=== PATIENT | female | born 1995 | race Caucasian/White ===

== ENCOUNTER 2017-01-30 21:58 | Emergency (ER) | payer MEDICAID ==
--- NOTE | ~2017-01-30 | ER ---
PATIENT'S NAME: ALLYSON [facility]ER[facility] AGE: 21 Y [address] ROOM: [place], [place] [address] LOCATION: [facility] ADMIT DATE: 01/30/2017 ER/Outpatient Report DISCHARGE DATE: 01/30/2017 FAMILY PHYSICIAN: Rupesh Tovar PA-C ATTENDING PHYSICIAN: Louis Rene HISTORY OF PRESENT ILLNESS: A 21-year-old female who presents today with chest pain. Her chest wall pain is in the middle of her chest. It does not radiate. She does not have arm pain. She does have any nausea or vomiting. She is not coughing. She is not short of breath. She says that she has pain with palpation and also with deep breathing. She does not feel short of breath otherwise. She has no calf pain. She is status 3 months ago, she is on control pills right now, but otherwise has no PE risk factors. Denies any leg swelling. Denies any smoking history. No other complaints. She reports her pain is 8/10. She has not taken anything for it because she says ibuprofen and Tylenol do not help her. She does have Percocet at home after her 3 months ago, but says she does not want to take them because she has to watch kids at home and she does want to be tired. This pain started about 11 hour ago and she rates it an 8/10. No fever. PAST MEDICAL HISTORY: None. PAST SURGICAL HISTORY: and appendectomy. SOCIAL HISTORY: She does not smoke or use any drugs. Occasional alcohol. MEDICATIONS: 1. Ibuprofen p.r.n. 2. Percocet p.r.n. ALLERGIES: NONE. REVIEW OF SYSTEMS: Reviewed by me and negative with the exception of those discussed in the HPI. PHYSICAL EXAMINATION: VITAL SIGNS: She is 5 feet, 2 inches, she weighs 101.3 kilos, blood pressure is 168/79, heart rate is 89, respiratory rate is 16, temp is 99.1, and sats are 98% on room air. GCS is 15. GENERAL: The patient looks very comfortable, resting in stretcher, she was PATIENT'S NAME: ALLYSON STER[facility]ING [facility] AGE: 21 Y [address] ROOM: [place], [place] [address] LOCATION: ED ADMIT DATE: 01/30/2017 ER/Outpatient Report DISCHARGE DATE: 01/30/2017 FAMILY PHYSICIAN: Rupesh Tovar PA-C ATTENDING PHYSICIAN: Louis Rene texting and playing on [employer] before I came in, and she was like carrying her baby on her chest as well without any difficulty. She is not pale or diaphoretic. She is not actively vomiting or retching. She is not writhing in pain at all. NEURO: She is alert and oriented x4. GCS is 15. She answers questions appropriately. CHEST: She has chest wall tenderness across the sternum, but there is no crepitus. She does not have any decreased breath sounds. She has no wheezing, rales, or rhonchi. Normal breath sounds and satting 100% on room air. No accessory muscle use. No rib tenderness either. Heart rate is regular rate and rhythm. Currently, she is about 85 beats per minute. She has strong pulses and good cap refill. ABDOMEN: She has a so she has some mild tenderness, but no epigastric tenderness, no right upper quadrant tenderness, no left upper quadrant tenderness, and no CVA tenderness bilaterally. EXTREMITIES: She has no leg edema, no swelling, and no calf tenderness. EMERGENCY ROOM COURSE: We did an EKG here which on my read appears normal. She has sinus rhythm. There is no ectopy. There is no ST elevations or ST depressions. There are no inverted T-waves. I discussed with the patient that she is 21 years old she does not have what looks like to be an OH in her. Her history and physical exam that I have is pretty reassuring and there are no red flags. She says that she has something like this about a year ago and she was admitted to the hospital where she had this huge workup done, including a CTA chest, which was negative for blood clots, and then was discharged home because they did not find anything. Her sats are 100% on room air, she does not appear tachypneic at all, she has no other PE risk factors, I doubt that at this time. She is not coughing. She has no rales or rhonchi. She does not have any signs of pneumonia either. It is mostly chest wall tenderness; so, we treated the pain conservatively with some [place] first as she said that Tylenol and ibuprofen does not help and she said that it did not help her at all. So, we gave her some Toradol as well. She also said that did not really help her. I asked that she follow up with her primary care doctor. There is no red flags in her history or physical exam. She can take her Percocet at home as I think this is just chest wall tenderness and costochondritis. She understands this and will follow up appropriately. IMPRESSION: Chest wall pain. LOUIS RENE MD PATIENT'S NAME: ALLYSON STER[facility] AGE: 21 Y [address] ROOM: [place] [id number] LOCATION: [facility] ADMIT DATE: 01/30/2017 ER/Outpatient Report DISCHARGE DATE: 01/30/2017 FAMILY PHYSICIAN: Rupesh Tovar PA-C ATTENDING PHYSICIAN: Louis Rene/davis /[id number] d: [birth year] t: 02/03/17 0026, OUTPATIENT REPORT
[~2017-01-30 21:58] MED LIST: FEOSOL325 MG PO; MOTRIN800 MG PO; PERCOCET 5-3251 EACH PO; PRENATAL 1+1)(P1 TAB PO
== END 2017-01-30 23:51 | disposition disaster alternative care site (69) ==
LOC: GMED 21:58
DX: R07.89 Other chest pain (principal)
CPT/HCPCS: J1885